=== PATIENT | male | born 1940 ===

== ENCOUNTER 2017-10-16 06:24 | Day surgery (SDC) | payer OTHER | END 2017-10-16 14:00 | disposition home or self-care (01) | LOC: AMB-ENDOS 06:24 | DX: D12.2 Benign neoplasm of ascending colon (principal); K64.2 Third degree hemorrhoids; K57.30 Diverticulosis of large intestine without perforation or abscess without bleeding ==

== ENCOUNTER 2018-03-12 06:10 | Day surgery (SDC) | payer OTHER | END 2018-03-12 11:40 | disposition home or self-care (01) | LOC: AMB-ENDOS 06:10 | DX: D12.2 Benign neoplasm of ascending colon (principal) ==